=== PATIENT | male | born 1990 | race Caucasian/White ===

== ENCOUNTER 2022-02-17 04:28 | Emergency (ER) | payer MEDICAID ==
[~2022-02-17] VITALS: Ht 190.5 cm; Wt 91.7 kg
[2022-02-17 04:43] VITALS: BP 139/101
[2022-02-17] MEDS ORDERED: PREDNISONE 20MG TABLET PO STA (05:12)
[2022-02-17] MEDS ORDERED: FLUT9.9S BOTHNSTRLS (05:35)
[2022-02-17] MEDS ORDERED: P20 PO (05:35)
[2022-02-17] MEDS ORDERED: CETI-338 PO (05:35)
== END 2022-02-17 05:59 | disposition home or self-care (01) ==
LOC: ER 04:28
DX: R06.09 Other forms of dyspnea (principal); J30.9 Allergic rhinitis, unspecified; I10 Essential (primary) hypertension; E78.00 Pure hypercholesterolemia, unspecified
CPT/HCPCS: 99283; J7512

== ENCOUNTER 2022-06-09 16:43 | Emergency (ER) | payer MEDICAID ==
[~2022-06-09] VITALS: Ht 190.5 cm; Wt 88.0 kg
[~2022-06-09 16:43] MED LIST: CETI-338 PO; FLUT9.9S BOTHNSTRLS; P20 PO
[2022-06-09 16:46] VITALS: BP 141/95
[2022-06-09 20:05] LABS: CHLORIDE 105 mEq/L (98-107)
[2022-06-09 20:17] LABS: BASOPHILS % 0.8 % (0.0-2.0); EOSINOPHILS % 1.8 % (0.0-5.0); HEMATOCRIT. 42.2 % (42.0-52.0); HEMOGLOBIN. 14.4 g/dL (14.0-18.0); LYMPHOCYTES % 24.1 % (20.0-50.0); MEAN CORPUSCULAR HEMOGLOBIN 31.7 pg (28.0-32.0); MEAN CORPUSCULAR VOLUME 93.1 fL (80.0-94.0); MEAN PLATELET VOLUME 9.9 fl (7.4-10.4); NEUTROPHILS % 65.3 % (40.0-76.0); PLATELET 238 x1000/uL (130-400); RED BLOOD CELL COUNT 4.54 mill/uL (4.7-6.1)
== END 2022-06-09 21:05 | disposition home or self-care (01) ==
LOC: ER 16:43
DX: R07.89 Other chest pain (principal); I10 Essential (primary) hypertension; E78.00 Pure hypercholesterolemia, unspecified
CPT/HCPCS: 36415; 71045; 80053; 83880; 84484; 85025; 93005; 99285

== ENCOUNTER 2022-07-14 09:37 | Emergency (ER) | payer MEDICAID ==
[~2022-07-14] VITALS: Ht 190.5 cm; Wt 87.0 kg
[2022-07-14 09:58] VITALS: BP 136/93
[2022-07-14 12:09] LABS: BASOPHILS % 0.6 % (0.0-2.0); EOSINOPHILS % 1.1 % (0.0-5.0); HEMATOCRIT. 46.9 % (42.0-52.0); HEMOGLOBIN. 15.7 g/dL (14.0-18.0); LYMPHOCYTES % 16.7 % (20.0-50.0); MEAN CORPUSCULAR HEMOGLOBIN 31.6 pg (28.0-32.0); MEAN CORPUSCULAR VOLUME 94.6 fL (80.0-94.0); MEAN PLATELET VOLUME 9.8 fl (7.4-10.4); NEUTROPHILS % 75.6 % (40.0-76.0); PLATELET 189 x1000/uL (130-400); RED BLOOD CELL COUNT 4.96 mill/uL (4.7-6.1); RED CELL DISTRIBUTION WIDTH 13.3 % (11.6-14.6)
[2022-07-14 12:14] LABS: CHLORIDE 105 mEq/L (98-107)
== END 2022-07-14 12:55 | disposition home or self-care (01) ==
LOC: ER 10:24
DX: R20.2 Paresthesia of skin (principal); F41.9 Anxiety disorder, unspecified; I10 Essential (primary) hypertension; E78.00 Pure hypercholesterolemia, unspecified; G47.30 Sleep apnea, unspecified
CPT/HCPCS: 36415; 80053; 85025; 99283

== ENCOUNTER 2022-09-15 08:32 | Emergency (ER) | payer MEDICAID ==
[~2022-09-15] VITALS: Ht 182.9 cm; Wt 91.0 kg
[2022-09-15 08:52] VITALS: BP 129/90
== END 2022-09-15 09:37 | disposition home or self-care (01) ==
LOC: ER 08:32
DX: R20.2 Paresthesia of skin (principal); I10 Essential (primary) hypertension; E78.00 Pure hypercholesterolemia, unspecified
CPT/HCPCS: 99281

== ENCOUNTER 2022-11-01 10:00 | Emergency (ER) | payer MEDICAID ==
[~2022-11-01] VITALS: Ht 188 cm; Wt 91.0 kg
[2022-11-01 10:09] VITALS: BP 123/89
[2022-11-01] MEDS ORDERED: IBUPROFEN 400MG TABLET PO ONE (11:30)
[2022-11-01 13:19] LABS: BASOPHILS % 0.7 % (0.0-2.0); EOSINOPHILS % 1.4 % (0.0-5.0); HEMATOCRIT. 43.1 % (42.0-52.0); LYMPHOCYTES % 12.9 % (20.0-50.0); MEAN CORPUSCULAR HEMOGLOBIN 32.3 pg (28.0-32.0); MEAN CORPUSCULAR VOLUME 92.5 fL (80.0-94.0); MEAN PLATELET VOLUME 9.7 fl (7.4-10.4); MONOCYTES % 5.9 % (2.0-8.0); NEUTROPHILS % 79.1 % (40.0-76.0); PLATELET 232 x1000/uL (130-400); RED BLOOD CELL COUNT 4.66 mill/uL (4.7-6.1); RED CELL DISTRIBUTION WIDTH 13.2 % (11.6-14.6)
[2022-11-01 13:33] LABS: CHLORIDE 104 mEq/L (98-107)
[2022-11-01] MEDS ORDERED: IBUP-2028 MT (14:11)
== END 2022-11-01 14:36 | disposition home or self-care (01) ==
LOC: ER 10:08
DX: R07.9 Chest pain, unspecified (principal); F41.9 Anxiety disorder, unspecified; E78.00 Pure hypercholesterolemia, unspecified; I10 Essential (primary) hypertension; G47.30 Sleep apnea, unspecified
CPT/HCPCS: 36415; 71045; 80053; 84484; 85025; 99284

== ENCOUNTER 2022-11-20 20:33 | Emergency (ER) | payer MEDICAID ==
[~2022-11-20] VITALS: Ht 190.5 cm; Wt 91.0 kg
[~2022-11-20 20:33] MED LIST changes: +IBUP-2028 MT
[2022-11-20 20:49] VITALS: BP 161/102
== END 2022-11-20 23:18 | disposition left against medical advice (07) ==
LOC: ER 20:57
DX: Z53.21 Procedure and treatment not carried out due to patient leaving prior to being seen by health care provider (principal); I10 Essential (primary) hypertension; E78.00 Pure hypercholesterolemia, unspecified

== ENCOUNTER 2023-01-19 17:48 | Emergency (ER) | payer MEDICAID ==
[~2023-01-19] VITALS: Ht 190.5 cm; Wt 88.0 kg
[2023-01-19 17:58] VITALS: BP 157/97
[2023-01-19 18:25] LABS: BASOPHILS % 0.5 % (0.0-2.0); EOSINOPHILS % 2.7 % (0.0-5.0); HEMATOCRIT. 41.7 % (42.0-52.0); HEMOGLOBIN. 14.2 g/dL (14.0-18.0); LYMPHOCYTES % 24.2 % (20.0-50.0); MEAN CORPUSCULAR HEMOGLOBIN 31.6 pg (28.0-32.0); MEAN CORPUSCULAR VOLUME 92.8 fL (80.0-94.0); MEAN PLATELET VOLUME 9.4 fl (7.4-10.4); MONOCYTES % 8.5 % (2.0-8.0); NEUTROPHILS % 64.1 % (40.0-76.0); PLATELET 252 x1000/uL (130-400); RED BLOOD CELL COUNT 4.49 mill/uL (4.7-6.1); RED CELL DISTRIBUTION WIDTH 13.6 % (11.6-14.6)
[2023-01-19 18:37] LABS: CHLORIDE 107 mEq/L (98-107)
[2023-01-19] MEDS ORDERED: MECL-217 MT (21:01)
== END 2023-01-19 21:37 | disposition home or self-care (01) ==
LOC: ER 17:48
DX: R42 Dizziness and giddiness (principal); E78.00 Pure hypercholesterolemia, unspecified; I10 Essential (primary) hypertension; Z79.899 Other long term (current) drug therapy
CPT/HCPCS: 36415; 71045; 80053; 82962; 84484; 85025; 93005; 99285

== ENCOUNTER 2023-03-29 16:32 | Emergency (ER) | payer BC, MEDICAID ==
[~2023-03-29] VITALS: Ht 190.5 cm; Wt 88.0 kg
[~2023-03-29 16:32] MED LIST changes: +MECL-217 MT
[2023-03-29 16:37] VITALS: BP 138/89; PULSE 87; RESP 16; TEMP 98.6; O2SAT 99
[2023-03-29 16:59] LABS: BASOPHILS % 0.7 % (0.0-2.0); EOSINOPHILS % 2.5 % (0.0-5.0); HEMATOCRIT. 42.5 % (42.0-52.0); HEMOGLOBIN. 14.5 g/dL (14.0-18.0); LYMPHOCYTES % 26.7 % (20.0-50.0); MEAN CORPUSCULAR HEMOGLOBIN 31.7 pg (28.0-32.0); MEAN CORPUSCULAR VOLUME 92.9 fL (80.0-94.0); MEAN PLATELET VOLUME 9.6 fl (7.4-10.4); MONOCYTES % 8.3 % (2.0-8.0); NEUTROPHILS % 61.8 % (40.0-76.0); PLATELET 218 x1000/uL (130-400); RED BLOOD CELL COUNT 4.58 mill/uL (4.7-6.1); RED CELL DISTRIBUTION WIDTH 13.8 % (11.6-14.6)
[2023-03-29 17:08] LABS: CHLORIDE 109 mEq/L (98-107)
== END 2023-03-29 22:28 | disposition left against medical advice (07) ==
LOC: ER 16:32
DX: R42 Dizziness and giddiness (principal); Z53.21 Procedure and treatment not carried out due to patient leaving prior to being seen by health care provider
CPT/HCPCS: 36415; 71045; 80053; 84484; 85025; 93005; 99281

== ENCOUNTER 2023-06-07 19:51 | Emergency (ER) | payer BC, MEDICAID ==
[~2023-06-07] VITALS: Ht 180.3 cm; Wt 77.0 kg
[2023-06-07 20:06] VITALS: O2SAT 99
[2023-06-07 21:02] VITALS: BP 145/89; PULSE 90; RESP 16; TEMP 98.5
[2023-06-07 22:53] LABS: BASOPHILS % 0.5 % (0.0-2.0); EOSINOPHILS % 1.3 % (0.0-5.0); HEMATOCRIT. 41.7 % (42.0-52.0); HEMOGLOBIN. 13.8 g/dL (14.0-18.0); LYMPHOCYTES % 16.7 % (20.0-50.0); MEAN CORPUSCULAR HEMOGLOBIN 31.6 pg (28.0-32.0); MEAN CORPUSCULAR VOLUME 95.7 fL (80.0-94.0); MEAN PLATELET VOLUME 9.3 fl (7.4-10.4); MONOCYTES % 5.7 % (2.0-8.0); NEUTROPHILS % 75.8 % (40.0-76.0); PLATELET 227 x1000/uL (130-400); RED BLOOD CELL COUNT 4.35 mill/uL (4.7-6.1); RED CELL DISTRIBUTION WIDTH 13.3 % (11.6-14.6); WHITE BLOOD COUNT 10.8 x1000/uL (4.5-11.0)
[2023-06-07 23:01] LABS: CHLORIDE 109 mEq/L (98-107); INDEX HEMOLYSI 1 (1-3); INDEX ICTERIC 1 (1-4); INDEX LIPEMIC 1 (1-3); POTASSIUM 3.7 mEq/L (3.5-5.1); SODIUM 138 mEq/L (136-145)
[2023-06-07 23:03] LABS: ALBUMIN 4.1 g/dL (3.4-5.0); CALCIUM 8.7 mg/dL (8.5-10.1); CARBON DIOXIDE 24 mEq/L (21-32); GLUCOSE 107 mg/dL (70-105); UREA NITROGEN BLOOD 20 mg/dL (7-21)
[2023-06-07 23:09] LABS: ALANINE AMINOTRANSFERASE 18 IU/L (13-61); ASPARTATE AMINOTRANSFERASE 12 IU/L (15-37); BILIRUBIN TOTAL 0.4 mg/dL (0.1-1.0); CREATININE 0.9 mg/dL (0.6-1.3); PROTEIN TOTAL 7.9 g/dL (6.0-8.3)
[2023-06-07] MEDS ORDERED: DOCU-150 MT (23:53)
== END 2023-06-08 00:10 | disposition home or self-care (01) ==
LOC: ER 20:59
DX: R10.11 Right upper quadrant pain (principal); K59.00 Constipation, unspecified; E78.00 Pure hypercholesterolemia, unspecified; I10 Essential (primary) hypertension
CPT/HCPCS: 36415; 80053; 83605; 85025; 99283

== ENCOUNTER 2024-07-14 03:48 | Emergency (ER) | payer BC, MEDICAID ==
[~2024-07-14] VITALS: Ht 188 cm; Wt 96.0 kg
[~2024-07-14 03:48] MED LIST changes: -CETI-338 PO; +CETI-341 PO; +DOCU-150 MT
[2024-07-14 03:55] VITALS: O2SAT 99
[2024-07-14 04:03] VITALS: BP 162/92; PULSE 103; RESP 20; TEMP 98.7; O2SAT 99
[2024-07-14] MEDS: DEXAMETHASONE 10 MG/ML VIAL IM ONE (05:32)
[2024-07-14] MEDS: KETOROLAC 30MG/ML VIAL IM ONE (05:32)
[2024-07-14 05:54] LABS: CLARITY URINE CLEAR (CLEAR); COLOR URINE YELLOW (YELLOW); GLUCOSE URINE NEGATIVE (NEGATIVE); KETONES URINE NEGATIVE (NEGATIVE); LEUKOCYTE ESTERASE URINE NEGATIVE (NEGATIVE); NITRITE URINE NEGATIVE (NEGATIVE); OCCULT BLOOD URINE NEGATIVE (NEGATIVE); PH URINE 5.5 (4.5-8.0); PROTEIN URINE NEGATIVE (NEGATIVE); SPECIFIC GRAVITY URINE 1.023 (1.005-1.030); UROBILINOGEN URINE 0.2 E.U./dL (0.2-1.0)
[2024-07-14] MEDS ORDERED: NAPR-420 MT (06:55)
== END 2024-07-14 07:09 | disposition home or self-care (01) ==
LOC: ER 03:48
DX: B34.9 Viral infection, unspecified (principal); I10 Essential (primary) hypertension; E78.00 Pure hypercholesterolemia, unspecified; Z20.822 Contact with and (suspected) exposure to COVID-19; Z00.00 Encounter for general adult medical examination without abnormal findings; Z79.899 Other long term (current) drug therapy; Z98.890 Other specified postprocedural states; Z90.49 Acquired absence of other specified parts of digestive tract
CPT/HCPCS: 99283; 87426; 81003; 87430; J1100